=== PATIENT | male | born 1950 | race Caucasian/White ===

== ENCOUNTER 2017-09-12 06:27 | Emergency (ER) | payer MEDICARE ==
[~2017-09-12] VITALS: Ht 185.4 cm; Wt 104.3 kg
[~2017-09-12 06:27] MED LIST: IBUP800; INSULANPEN SQ; Percocet 5-3251 EACH PO; Prednisone20 MG PO; Robaxin500 MG PO
[2017-09-12 07:47] LABS: BASOPHILS ABSOLUTE AUTO 0.04 K/mm3 (0.00-0.23); BASOPHILS PERCENT AUTO 0 % (0-2); EOSINOPHILS ABSOLUTE AUTO 0.06 K/mm3 (0.00-0.68); EOSINOPHILS PERCENT AUTO 0 % (0-6); Hematocrit 36.1 % (37.0-53.0); Hemoglobin 12.1 g/dL (13.5-17.5); IMMATURE GRAN ABSOLUTE AUTO 0.13 K/mm3 (0.00-0.10); IMMATURE GRAN PERCENT AUTO 1 % (0-1); LYMPHOCYTES ABSOLUTE AUTO 0.83 K/mm3 (0.84-5.20); LYMPHOCYTES PERCENT AUTO 6 % (21-46); MONOCYTES ABSOLUTE AUTO 0.86 K/mm3 (0.16-1.47); MONOCYTES PERCENT AUTO 6 % (4-13); Mean Corpuscular HGB 30.3 pg (26.0-34.0); Mean Corpuscular HGB Conc 33.5 g/dL (31.5-36.5); Mean Corpuscular Volume 91 fL (80-100); Mean Platelet Volume 8.6 fL (9.1-12.4); NEUTROPHILS ABSOLUTE AUTO 11.78 K/mm3 (1.96-9.15); NEUTROPHILS PERCENT AUTO 86 % (41-73); Platelet Count 172 K/mm3 (150-400); RDW Coefficient Variation 12.2 % (11.7-14.2); RDW Standard Deviation 40.9 fL (35.1-46.3); Red Blood Cell Count 3.99 M/mm3 (4.30-5.90)
[2017-09-12 07:59] LABS: Anion Gap 7 mmol/L (6-16); Blood Urea Nitrogen 26 mg/dL (8-24); Bun/Creatinine Ratio 28.8 (12.0-20.0); CO2, Blood 25 mmol/L (21-32); Calcium, Blood 8.5 mg/dL (8.5-10.1); Chloride, Blood 99 mmol/L (98-108); Glomerular Filtration Rate >60 (60-); Glucose, Blood 242 mg/dL (70-99); Potassium, Blood 3.7 mmol/L (3.5-5.5); Sodium, Blood 131 mmol/L (136-145)
[2017-09-12] MEDS ORDERED: Ultram50 MG PO (09:25)
[2017-09-12] MEDS ORDERED: Bactrim Ds Tab1 EACH PO (09:25)
[2017-09-12] MEDS ORDERED: Keflex500 MG PO (09:25)
== END 2017-09-12 09:48 | disposition home or self-care (01) ==
LOC: ER 06:27
PROVIDERS: Emergency Medicine
DX: L03.317 Cellulitis of buttock (principal); L02.31 Cutaneous abscess of buttock; E11.9 Type 2 diabetes mellitus without complications; Z79.4 Long term (current) use of insulin
CPT/HCPCS: 36415; 74177; 80048; 85025; 96374; 99284; J0690; Q9967

== ENCOUNTER 2017-09-15 04:55 | Emergency (ER) | payer MEDICARE ==
[~2017-09-15] VITALS: Ht 185.4 cm; Wt 90.7 kg
[~2017-09-15 04:55] MED LIST changes: +Bactrim Ds Tab1 EACH PO; +Keflex500 MG PO; +Ultram50 MG PO
[2017-09-15 05:25] LABS: Calcium, Ionized (POC) 1.14 mmol/L (1.10-1.46); Chloride (POC) 96 mmol/L (98-108); Creatinine (POC) 0.9 mg/dL (0.8-1.3); Glucose (ISTAT POC) 338 mg/dL (70-99); Hemoglobin (POC) 12.9 g/dL (13.5-17.5); Potassium (POC) 3.9 mmol/L (3.5-5.5); Sodium (POC) 131 mmol/L (135-148); Total CO2 (POC) 22 mmol/L (21-32)
[2017-09-15 05:31] LABS: BASOPHILS ABSOLUTE AUTO 0.06 K/mm3 (0.00-0.23); BASOPHILS PERCENT AUTO 1 % (0-2); EOSINOPHILS PERCENT AUTO 2 % (0-6); Hematocrit 35.9 % (37.0-53.0); Hemoglobin 12.3 g/dL (13.5-17.5); IMMATURE GRAN PERCENT AUTO 1 % (0-1); LYMPHOCYTES ABSOLUTE AUTO 1.64 K/mm3 (0.84-5.20); LYMPHOCYTES PERCENT AUTO 13 % (21-46); MONOCYTES ABSOLUTE AUTO 0.87 K/mm3 (0.16-1.47); MONOCYTES PERCENT AUTO 7 % (4-13); Mean Corpuscular HGB 30.5 pg (26.0-34.0); Mean Corpuscular HGB Conc 34.3 g/dL (31.5-36.5); Mean Corpuscular Volume 89 fL (80-100); Mean Platelet Volume 8.4 fL (9.1-12.4); NEUTROPHILS ABSOLUTE AUTO 10.04 K/mm3 (1.96-9.15); NEUTROPHILS PERCENT AUTO 78 % (41-73); Platelet Count 258 K/mm3 (150-400); RDW Coefficient Variation 12.3 % (11.7-14.2); RDW Standard Deviation 40.2 fL (35.1-46.3); Red Blood Cell Count 4.03 M/mm3 (4.30-5.90); White Blood Cell Count 12.91 K/mm3 (4.00-11.30)
[2017-09-15 05:55] LABS: Alanine Aminotransfer (ALT/SGP 16 U/L (12-78); Albumin, Blood 2.7 g/dL (3.4-5.0); Albumin/Globulin Ratio 0.6 (0.8-1.8); Alk Phos 99 U/L (50-136); Anion Gap 9 mmol/L (6-16); Aspartate Aminotrans (AST/SGOT 13 U/L (12-37); Bilirubin, Total 0.3 mg/dL (0.1-1.0); Blood Urea Nitrogen 13 mg/dL (8-24); Bun/Creatinine Ratio 14.1 (12.0-20.0); CO2, Blood 23 mmol/L (21-32); Calcium, Blood 8.4 mg/dL (8.5-10.1); Chloride, Blood 99 mmol/L (98-108); Creatinine, Blood 0.92 mg/dL (0.60-1.20); Globulin, Blood 4.6 g/dL (2.2-4.0); Glomerular Filtration Rate >60 (60-); Glucose, Blood 325 mg/dL (70-99); Potassium, Blood 3.8 mmol/L (3.5-5.5); Sodium, Blood 131 mmol/L (136-145); Total Protein, Blood 7.3 g/dL (6.4-8.2)
== END 2017-09-15 11:40 | disposition short-term general hospital (02) ==
LOC: ER 04:55
PROVIDERS: Emergency Medicine
DX: N49.3 Fournier gangrene (principal); E11.9 Type 2 diabetes mellitus without complications; Z79.4 Long term (current) use of insulin; Z79.2 Long term (current) use of antibiotics
CPT/HCPCS: 36415; 72193; 80047; 80053; 83605; 85014; 85025; 87040; 96365; 96367; 96368; 96375; 96376; 99285; J1170; J1956; J2543; J3010; J3370; J7030; J7050; Q9967

== ENCOUNTER 2020-10-21 20:20 | Inpatient (IN) | payer BC, MEDICARE ==
[~2020-10-21] VITALS: Ht 185.4 cm; Wt 114.2 kg
[2020-10-21] MEDS ORDERED: BASAGLAR K100 UNIT/8 SC (20:52)
[2020-10-21 21:01] LABS: BASOPHILS ABSOLUTE AUTO 0.04 K/mm3 (0.00-0.23); BASOPHILS PERCENT AUTO 0 % (0-2); Hematocrit 39.9 % (37.0-53.0); Hemoglobin 13.3 g/dL (13.5-17.5); LYMPHOCYTES PERCENT AUTO 3 % (21-46); MONOCYTES ABSOLUTE AUTO 0.53 K/mm3 (0.16-1.47); MONOCYTES PERCENT AUTO 3 % (4-13); Mean Corpuscular HGB 30.9 pg (26.0-34.0); Mean Corpuscular HGB Conc 33.3 g/dL (31.5-36.5); Mean Corpuscular Volume 93 fL (80-100); Mean Platelet Volume 8.8 fL (9.1-12.4); Platelet Count 208 K/mm3 (150-400); RDW Coefficient Variation 13.5 % (11.7-14.2); White Blood Cell Count 17.14 K/mm3 (4.00-11.30)
[2020-10-21 21:02] LABS: EOSINOPHILS PERCENT AUTO 0 % (0-6); IMMATURE GRAN ABSOLUTE AUTO 0.23 K/mm3 (0.00-0.10); IMMATURE GRAN PERCENT AUTO 1 % (0-1); NEUTROPHILS ABSOLUTE AUTO 15.84 K/mm3 (1.96-9.15); NEUTROPHILS PERCENT AUTO 93 % (41-73)
[2020-10-21 21:22] LABS: BAND PERCENT MAN 14 % (0-8); BASOPHILS PERCENT MAN 0 % (0-2); EOSINOPHILS PERCENT MAN 0 % (0-6); LYMPHOCYTES ABSOLUTE MAN 0.17 K/mm3 (0.84-5.20); LYMPHOCYTES PERCENT MAN 1 % (21-46); METAMYELOCYTE ABSOLUTE MAN 0.17 K/mm3 (0.00-0.00); METAMYELOCYTE PERCENT MAN 1 % (0-0); MONOCYTES ABSOLUTE MAN 0.68 K/mm3 (0.16-1.47); MONOCYTES PERCENT MAN 4 % (4-13); NEUTROPHILS ABSOLUTE MAN 16.11 K/mm3 (1.96-9.15); SEG NEUTROPHILS PERCENT MAN 80 % (41-73); TOTAL CELLS COUNTED 100
[2020-10-21 21:28] LABS: Albumin, Blood 3.6 g/dL (3.4-5.0); Bilirubin, Total 0.8 mg/dL (0.1-1.0); Calcium, Blood 8.9 mg/dL (8.5-10.1); Creatinine, Blood 1.29 mg/dL (0.60-1.20); Globulin, Blood 3.7 g/dL (2.2-4.0); Potassium, Blood 3.9 mmol/L (3.5-5.5); Total Protein, Blood 7.3 g/dL (6.4-8.2)
[2020-10-21 21:29] LABS: Troponin I 0.538 ng/mL (0.000-0.040)
[2020-10-21 22:34] LABS: Creatine Kinase MB 4.6 ng/mL (0.0-3.6); Creatine Kinase MB Index 0.1 (0.0-4.0)
[2020-10-21 23:55] LABS: Source, Urine Catheter
[2020-10-22 00:03] LABS: Appearance, Urine Clear (Clear); Blood, Urine 5+ (Neg); Color, Urine Amber (P-Yellow); Glucose Qualitative, Urine Neg (Neg); Ketones, Urine 3+ (Neg); Leukocyte Esterase, Urine 1+ (Neg); Nitrite, Urine Pos (Neg); Protein, Urine 4+ (Neg); Specific Gravity, Urine 1.015 (1.003-1.022); Urobilinogen, Urine 2+ (Normal)
[2020-10-22 00:04] LABS: Bilirubin, Urine 1+ (Neg)
[2020-10-22 00:06] LABS: Bacteria Mod /hpf; Mucus Light (0-Heavy); Red Blood Cells, Urine 0-2 /hpf (0-2); Squamous Epithelial Cells Few /hpf (Few)
[2020-10-22 04:35] LABS: BASOPHILS ABSOLUTE AUTO 0.03 K/mm3 (0.00-0.23); BASOPHILS PERCENT AUTO 0 % (0-2); Hematocrit 37.4 % (37.0-53.0); Hemoglobin 12.5 g/dL (13.5-17.5); LYMPHOCYTES ABSOLUTE AUTO 0.67 K/mm3 (0.84-5.20); LYMPHOCYTES PERCENT AUTO 6 % (21-46); MONOCYTES ABSOLUTE AUTO 0.28 K/mm3 (0.16-1.47); MONOCYTES PERCENT AUTO 2 % (4-13); Mean Corpuscular HGB 31.6 pg (26.0-34.0); Mean Corpuscular HGB Conc 33.4 g/dL (31.5-36.5); Mean Corpuscular Volume 95 fL (80-100); Mean Platelet Volume 8.5 fL (9.1-12.4); Platelet Count 166 K/mm3 (150-400); RDW Coefficient Variation 13.5 % (11.7-14.2); RDW Standard Deviation 47.2 fL (35.1-46.3); Red Blood Cell Count 3.95 M/mm3 (4.30-5.90); White Blood Cell Count 12.22 K/mm3 (4.00-11.30)
[2020-10-22 04:36] LABS: EOSINOPHILS PERCENT AUTO 0 % (0-6); IMMATURE GRAN ABSOLUTE AUTO 0.06 K/mm3 (0.00-0.10); IMMATURE GRAN PERCENT AUTO 1 % (0-1); NEUTROPHILS ABSOLUTE AUTO 11.18 K/mm3 (1.96-9.15); NEUTROPHILS PERCENT AUTO 92 % (41-73)
[2020-10-22 04:55] LABS: Albumin, Blood 3.1 g/dL (3.4-5.0); Albumin/Globulin Ratio 0.9 (0.8-1.8); Bilirubin, Total 0.6 mg/dL (0.1-1.0); Bun/Creatinine Ratio 22.6 (12.0-20.0); Creatinine, Blood 1.33 mg/dL (0.60-1.20); Globulin, Blood 3.4 g/dL (2.2-4.0); Potassium, Blood 3.5 mmol/L (3.5-5.5); Total Protein, Blood 6.5 g/dL (6.4-8.2)
--- NOTE | 2020-10-22 05:05 | NUR ---
SHIFT SUMMARY RECIEVED PATIENT FROM ED AT APPROXIMETLY 0145. PATIENT FOUND TO BE A PLEASANT GENTLEMAN WHO IS A&OX3, FOLLOWING COMMANDS, AND SHOOK. POOR HISTORIAN AND POOR AWARENESS OF TIME. NO PAIN OR DISTRESS NOTED UPON ASSESSMENT. VSS. NSR ON THE MONITOR. ON RA. FLUIDS AND IV ABX INFUSING PER ORDER. NPO FOR TESTS IN AM. VOIDING WELL PER URINAL. NO ACUTE CONCERNS AT THIS TIME. WILL CONTINUE TO MONITOR.
[2020-10-22 05:36] LABS: Creatine Kinase MB 9.8 ng/mL (0.0-3.6); Creatine Kinase MB Index 0.1 (0.0-4.0)
[2020-10-22 13:42] LABS: Troponin I 0.605 ng/mL (0.000-0.040)
[2020-10-22 14:06] LABS: Creatine Kinase MB 3.9 ng/mL (0.0-3.6)
--- NOTE | 2020-10-22 17:10 | NUR ---
Shift Summary Pt has been a/o x 3 with moments of forgetfulness. He is weak and needs assistance with turning with brief changes. He c/o pain to his LLE and it is warm and red. The Dr was notified and an ultrasound was completed and DVT was ruled out. CT was completed and reviewed by Dr Vieira who was consulted for ortho. Per Dr Vieira the infection remains superficial and between him and Dr Mark the IV ABO were changed from Cleocin to Vanco. The pt spiked a fever this afternoon and Dr Mark ordered tylenol and another set of blood cultures both of which were completed. The Daughter arrived this afternoon and is now at the bedside and has been updated on the current plan. Daughter is the pt's person of contact and is also a RN in [place]. She is a good advocate for her dad. Dr Vieira will see the pt again in the morning. Pt diet was advanced but he has no appetite and took a few sips of water and a sugar free prtein drink. Pt has been resting most of the day but calls when needed. The bed alarm is on for pt safety.
[2020-10-23 04:21] LABS: BASOPHILS ABSOLUTE AUTO 0.03 K/mm3 (0.00-0.23); BASOPHILS PERCENT AUTO 0 % (0-2); EOSINOPHILS ABSOLUTE AUTO 0.01 K/mm3 (0.00-0.68); EOSINOPHILS PERCENT AUTO 0 % (0-6); Hematocrit 32.5 % (37.0-53.0); Hemoglobin 11.1 g/dL (13.5-17.5); IMMATURE GRAN ABSOLUTE AUTO 0.06 K/mm3 (0.00-0.10); IMMATURE GRAN PERCENT AUTO 1 % (0-1); LYMPHOCYTES ABSOLUTE AUTO 0.76 K/mm3 (0.84-5.20); LYMPHOCYTES PERCENT AUTO 7 % (21-46); MONOCYTES ABSOLUTE AUTO 0.36 K/mm3 (0.16-1.47); MONOCYTES PERCENT AUTO 4 % (4-13); Mean Corpuscular HGB 31.4 pg (26.0-34.0); Mean Corpuscular HGB Conc 34.2 g/dL (31.5-36.5); Mean Corpuscular Volume 92 fL (80-100); Mean Platelet Volume 9.1 fL (9.1-12.4); NEUTROPHILS ABSOLUTE AUTO 9.11 K/mm3 (1.96-9.15); NEUTROPHILS PERCENT AUTO 88 % (41-73); Platelet Count 150 K/mm3 (150-400); RDW Coefficient Variation 13.4 % (11.7-14.2); RDW Standard Deviation 45.5 fL (35.1-46.3); Red Blood Cell Count 3.54 M/mm3 (4.30-5.90); White Blood Cell Count 10.33 K/mm3 (4.00-11.30)
[2020-10-23 05:07] LABS: Alanine Aminotransfer (ALT/SGP 81 U/L (12-78); Albumin, Blood 2.4 g/dL (3.4-5.0); Albumin/Globulin Ratio 0.7 (0.8-1.8); Alk Phos 51 U/L (50-136); Anion Gap 6 mmol/L (6-16); Aspartate Aminotrans (AST/SGOT 208 U/L (12-37); Bilirubin, Total 0.4 mg/dL (0.1-1.0); Blood Urea Nitrogen 32 mg/dL (8-24); Bun/Creatinine Ratio 27.4 (12.0-20.0); CO2, Blood 23 mmol/L (21-32); Calcium, Blood 7.2 mg/dL (8.5-10.1); Chloride, Blood 108 mmol/L (98-108); Creatine Kinase MB 2.2 ng/mL (0.0-3.6); Creatinine, Blood 1.17 mg/dL (0.60-1.20); Globulin, Blood 3.3 g/dL (2.2-4.0); Glomerular Filtration Rate >60 (60-); Glucose, Blood 115 mg/dL (70-99); Potassium, Blood 3.6 mmol/L (3.5-5.5); Sodium, Blood 137 mmol/L (136-145); Total Protein, Blood 5.7 g/dL (6.4-8.2)
[2020-10-23 05:09] LABS: C-REACTIVE PROTEIN, EXT RANGE >19.000 mg/dL (0.000-0.300); CPK Creatine Kinase 7777 U/L (39-308)
--- NOTE | 2020-10-23 05:30 | NUR ---
SHIFT SUMMARY PATIENT IS A PLEASANT GENTLEMAN FOUND TO BE A&OX4, FOLLOWS COMMANDS, AND SHOOK, ALTHOUGH LEFT LEG WEAKER. FEBRILE WITH A TMAX OF 101 WITH GOOD RELIEF WITH TYLENOL. VSS. ON RA. PAIN, SWELLING, AND REDNESS TO LLE WITH GOOD PAIN RELIEF USING TORADOL. ELEVATED ON PILLOW TO REDUCE SWELLING. TOLERATING CARDIAC DIET. NO CP NOTED. VOIDING WELL PER URINAL. IV ABX AND FLUIDS INFUSING PER ORDER. PATIENT STATES FEELING MUCH BETTER THIS AM. NO ACUTE CONCERNS AT THIS TIME. WILL CONTINUE TO MONITOR.
--- NOTE | 2020-10-23 10:01 | NUR ---
PT ALERT AND ORIENTED X4. ON ROOM AIR SATING ABOVE 94%. TELE SHOWING SINUS WITH PVC'S AND HR IN THE 80'S. DENIES CHEST PAIN. VITAL SIGNS STABLE WITH A TEMP OF 99.0. DENIES NEED FOR TYLENOL AT THIS TIME. BED ALARM ON FOR SAFETY. IV FLUIDS INFUSING. LEFT LOWER LEG REDNESS AND 2+ EDEMA NOTED. PAIN DESCRIBED IN LEFT LOWER LEG BELOW THE KNEE AND PAINFUL UPON MOVING OR PRESSURE. NO PAIN AT REST. USING URINAL, DARK ANGEL URINE. CALL LIGHT IN REACH. EDUCATED ON SAFETY. WILL CONTINUE TO MONITOR.
--- NOTE | 2020-10-23 18:08 | NUR ---
SHIFT SUMMARY: PT REMAINS ALERT AND ORIENTED X4. ON ROOM AIR SATING ABOVE 94%. TELE SHOWING SINUS WITH PVC'S AND HR 60-70'S. DENIES CHEST PAIN. COMPLAINS OF LEFT LOWER LEG PAIN. LEFT LEG BELOW THE KNEE REDNESS AND SWELLING NOTED, UNCHANGING THROUGHOUT THE SHIFT. MEDICATED PER EMAR WITH TORDAL WITH GOOD RELIEF. LEGS ELEVATED IN BED. USING URINAL. CALLING APPROPRIATLY. VITAL SIGNS STABLE. IV FLUIDS AND ANTIBIOTICS INFUSED. WILL CONTINUE TO MONITOR AND REPORT OFF.
--- NOTE | 2020-10-23 18:54 | NUR ---
Transfer from PCU to [place] [id number] Received report from [facility]-RN. Patient arrived to unit via w/c with NS infusing. Personal belongings came with patient including cell phone and real estate closing coordinator. A/Ox3, self transferred over to bed. SBA at this time. WCTM and report to oncoming RN.
[2020-10-24 02:16] LABS: Vancomycin, Trough 12.6 ug/mL (5.0-10.0)
--- NOTE | 2020-10-24 04:41 | NUR ---
SHIFT SUMMARY AOX4. VSS. TELE NSR c PVC @73. REPORTS 11/30 PAIN L ELBOW & LLE, MEDICATED 2X c TYLENOL & 1X c TORADOL PER ORDERS, ABLE TO REST COMFORTABLY. L ELBOW RED, WARM TO TOUCH, SWOLLEN, TENDER TO PALPATION. LLE RED, +2 EDEMA, HOT, TENDER TO TOUCH. RECIEVING IV ANTIBIOTICS FOR CELLULITIS. HS CBG @257, NO COVERAGE ORDERED, PT STATES HE NORMALLY TAKES INSULIN @[facility]-WILL PASS THIS INFO TO DAY NURSE. CALL LIGHT IN REACH & PT ABLE TO MAKE NEEDS KNOWN. WILL MONITOR.
[2020-10-24 08:44] LABS: Albumin, Blood 2.4 g/dL (3.4-5.0); Anion Gap 4 mmol/L (6-16); Blood Urea Nitrogen 19 mg/dL (8-24); Bun/Creatinine Ratio 20.8 (12.0-20.0); CO2, Blood 22 mmol/L (21-32); Calcium, Blood 7.2 mg/dL (8.5-10.1); Chloride, Blood 111 mmol/L (98-108); Creatinine, Blood 0.92 mg/dL (0.60-1.20); Glomerular Filtration Rate >60 (60-); Glucose, Blood 199 mg/dL (70-99); Phosphorus, Blood 1.5 mg/dL (2.5-4.9); Potassium, Blood 3.9 mmol/L (3.5-5.5); Sodium, Blood 137 mmol/L (136-145)
[2020-10-24 08:46] LABS: CPK Creatine Kinase 5437 U/L (39-308)
--- NOTE | 2020-10-24 16:13 | NUR ---
Shift Summary A/Ox4, pleasant and cooperative. Have not seen patient get up out of bed today, LLE remains elevated, hot to touch, erythema, but "not as tender when touched" compared to time of admission. Patient concern of unmanaged blood glucose in the hospital as he is not on his home regimen despite discussing with Dr. Lopez this morning. This RN explained/reiterated that per Dr. Lopez, patient will be given current diabetes regimen until discharge when patient can resume home insulin. Also explained that hospital has a strict ADA diet for diabetes (different from his regular diet at home) therefore will need different insulin coverages while hospitalized. Patient agreeable. Dr. Lopez and Dr. Sherman aware of L elbow/arm redness. MRSA swab collected and sent to lab. Medicated for 6/10 GARSIA x 2, nausea x 1 per EMAR. NS @ 125 infusing. Temp 99.6, otherwise all VSS stable. Patient requesting for rootbeer, but understood this is not part of an ADA diet. No other acute changes. Tele: SR PITTS @ 37.
[2020-10-25 05:38] LABS: Albumin, Blood 2.2 g/dL (3.4-5.0); Anion Gap 8 mmol/L (6-16); Blood Urea Nitrogen 14 mg/dL (8-24); Bun/Creatinine Ratio 14.9 (12.0-20.0); CO2, Blood 20 mmol/L (21-32); Calcium, Blood 7.5 mg/dL (8.5-10.1); Chloride, Blood 108 mmol/L (98-108); Creatinine, Blood 0.94 mg/dL (0.60-1.20); Glomerular Filtration Rate >60 (60-); Glucose, Blood 210 mg/dL (70-99); Phosphorus, Blood 1.9 mg/dL (2.5-4.9); Sodium, Blood 136 mmol/L (136-145)
--- NOTE | 2020-10-25 06:01 | NUR ---
SHIFT SUMMARY AOX4. VSS. TELE NSR c PVC @80. REPORTED 8/10 PAIN L ELBOW, MEDICATED 1X c ULTRAM & PT STATED VERY LITTLE RELIEF, PLACED ICE & ELEVATED. PT HAS NO COMPLAINTS OF PAIN IN ELBOW THIS AM. LLE & L ELBOW ARE RED, WARM TO TOUCH, HAVE EDEMA & TENDER TO TOUCH, PT RECIEVING IV ANTIBIOTICS. LLE ELEVATED ON PILLOW. MEDICATED 1X FOR GARSIA c TYLENOL. CALL LIGHT IN REACH & PT ABLE TO MAKE NEEDS KNOWN. WILL MONITOR.
--- NOTE | 2020-10-25 12:17 | NUR ---
PT STILL C/O PAIN AFTER MEDICATED. WANTS TO STAY UNTIL FEELING BETTER. CALLED DR Hernandez WILL HOLD D/C.
--- NOTE | 2020-10-25 17:12 | NUR ---
PT PLEASANT TODAY. TALKED SOME OF HIS WAR DAYS. NEIGHBOR BROUGHT IN DOG TO VISIT TODAY. THIS DEFINATELY HELPED HIS SPIRIT. PAIN WAS HIGHER THIS DAY. DID GIVE 2 TRAMADOL THIS AFT AND IS HELPING. HAS FEVER OF 100.2. GAVE TYLENOL AND WILL RECHECK. PT STATES WHEN WALKED TO BATHROOM, HIS LEG PAIN INCREASED GREATLY. FEELS NOT READY TO GO HOME. DR NOTIFIED. NO OTHER CONCERNS NOTED. BED INLOW POSITION, CALL LITE IN REACH, CALLS APPROP
--- NOTE | 2020-10-25 18:34 | NUR ---
dr crespo in to see pt. we viewed leg. believes no major changes today. did pat outline on leg
--- NOTE | 2020-10-26 05:04 | NUR ---
SHIFT SUMMARY S/P RHABDOMYOLYSIS/KENRICK/LLE CELLULITIS/LUE ELBOW PAIN, A/O, VSS, TOLERATING PO, REDNESS STILL PRESENT TO LLE AND HAS NOT EXCEEDED JEFFERSON DISTALLY, IMPROVED PROXIMALLY, PAIN WELL MANAGED PER EMAR, NO ACUTE EVENTS THIS SHIFT. CALL LIGHT IN REACH, WILL CONTINUE TO MONITOR AND REPORT TO ONCOMING DAY RN.
[2020-10-26 06:10] LABS: BASOPHILS ABSOLUTE AUTO 0.06 K/mm3 (0.00-0.23); BASOPHILS PERCENT AUTO 1 % (0-2); EOSINOPHILS ABSOLUTE AUTO 0.25 K/mm3 (0.00-0.68); EOSINOPHILS PERCENT AUTO 2 % (0-6); Hemoglobin 11.9 g/dL (13.5-17.5); IMMATURE GRAN ABSOLUTE AUTO 0.14 K/mm3 (0.00-0.10); IMMATURE GRAN PERCENT AUTO 1 % (0-1); LYMPHOCYTES ABSOLUTE AUTO 1.22 K/mm3 (0.84-5.20); LYMPHOCYTES PERCENT AUTO 11 % (21-46); MONOCYTES PERCENT AUTO 7 % (4-13); Mean Corpuscular HGB 30.8 pg (26.0-34.0); Mean Corpuscular HGB Conc 33.1 g/dL (31.5-36.5); Mean Corpuscular Volume 93 fL (80-100); Mean Platelet Volume 9.3 fL (9.1-12.4); NEUTROPHILS ABSOLUTE AUTO 8.35 K/mm3 (1.96-9.15); NEUTROPHILS PERCENT AUTO 78 % (41-73); Platelet Count 202 K/mm3 (150-400); RDW Coefficient Variation 13.2 % (11.7-14.2); RDW Standard Deviation 45.4 fL (35.1-46.3); Red Blood Cell Count 3.86 M/mm3 (4.30-5.90); White Blood Cell Count 10.72 K/mm3 (4.00-11.30)
[2020-10-26 06:32] LABS: Albumin, Blood 2.4 g/dL (3.4-5.0); Anion Gap 5 mmol/L (6-16); Blood Urea Nitrogen 14 mg/dL (8-24); Bun/Creatinine Ratio 14.4 (12.0-20.0); CO2, Blood 23 mmol/L (21-32); Calcium, Blood 8.3 mg/dL (8.5-10.1); Chloride, Blood 107 mmol/L (98-108); Creatinine, Blood 0.97 mg/dL (0.60-1.20); Glomerular Filtration Rate >60 (60-); Glucose, Blood 166 mg/dL (70-99); Phosphorus, Blood 2.3 mg/dL (2.5-4.9); Potassium, Blood 3.9 mmol/L (3.5-5.5); Sodium, Blood 135 mmol/L (136-145)
[2020-10-26 06:55] LABS: CPK Creatine Kinase 1222 U/L (39-308)
--- NOTE | 2020-10-26 08:00 | NUR ---
PT PLEASATNT COOP A/O X3. STATES LEG SOME BETTER TODAY. PAIN DOWN TO 5. STILL SWOLLEN AND WARM, BUT HAS RECEEDED FROM SHARPIE ROMELIA OF YEST. SWELLING DOWN FROM YEST. FINE WRINKLES NOTED. DR CHINCHILLA IN TO SEE PT. AGREES SHOULD GET ANOTHER DAY OF ABX IV. PT STATES TO ME THAT HE CANNOT COME BACK TO ATC FOR OUTPT ABX EVEN IF NEEDS. H/R REG, NO MURMER NOTED. PER TELE NSR AT 80'S. LUNGS CLEAR REWP EASY, UNLABORED. ON R.A/ BT HYPO LAST BM YEST. VOIDS URINAL. SBA TO BATHTROOM. DID HAVE PT STAND AND PERFORM INPLACE WALKING. DISCOMFORT REPORTED, BUT NOT SPECIFICALLY PAINFUL. BED IN LOW POSITION, CALL LITE IN REACH, CALLS APPROP
[2020-10-26 14:29] LABS: Vancomycin, Trough 11.3 ug/mL (5.0-10.0)
--- NOTE | 2020-10-26 18:07 | NUR ---
PT PLEASNT TODAY. DR SOLIZ IN TO SEE PT TODAY. PLACED DARIO WRAP ON L LEG. PT HAS BEEN UP TO WALK SOME TODAY. PAIN BETTER MANAGED TODAY. NEIGHBOR BROUGHT IN HIS DOG AGAIN TODAY. PT STATES SOME IMPROVEMENT. LEG COLOR HAS IMPROVED SOME, REDNESS HAS RECEEDED SOME ALSO. BED IN LOW POSITION, CALL LITE IN REACH, CALLS APROP
[2020-10-27 04:48] LABS: BASOPHILS ABSOLUTE AUTO 0.05 K/mm3 (0.00-0.23); BASOPHILS PERCENT AUTO 1 % (0-2); EOSINOPHILS ABSOLUTE AUTO 0.34 K/mm3 (0.00-0.68); EOSINOPHILS PERCENT AUTO 4 % (0-6); Hematocrit 33.3 % (37.0-53.0); Hemoglobin 11.4 g/dL (13.5-17.5); IMMATURE GRAN PERCENT AUTO 2 % (0-1); LYMPHOCYTES ABSOLUTE AUTO 1.25 K/mm3 (0.84-5.20); LYMPHOCYTES PERCENT AUTO 14 % (21-46); MONOCYTES ABSOLUTE AUTO 0.53 K/mm3 (0.16-1.47); MONOCYTES PERCENT AUTO 6 % (4-13); Mean Corpuscular HGB 31.3 pg (26.0-34.0); Mean Corpuscular HGB Conc 34.2 g/dL (31.5-36.5); Mean Corpuscular Volume 92 fL (80-100); Mean Platelet Volume 8.9 fL (9.1-12.4); NEUTROPHILS ABSOLUTE AUTO 6.51 K/mm3 (1.96-9.15); NEUTROPHILS PERCENT AUTO 73 % (41-73); Platelet Count 227 K/mm3 (150-400); RDW Coefficient Variation 12.9 % (11.7-14.2); RDW Standard Deviation 43.1 fL (35.1-46.3); Red Blood Cell Count 3.64 M/mm3 (4.30-5.90); White Blood Cell Count 8.88 K/mm3 (4.00-11.30)
[2020-10-27 05:07] LABS: Albumin, Blood 2.2 g/dL (3.4-5.0); Anion Gap 7 mmol/L (6-16); Blood Urea Nitrogen 16 mg/dL (8-24); Bun/Creatinine Ratio 17.9 (12.0-20.0); CO2, Blood 23 mmol/L (21-32); CPK Creatine Kinase 504 U/L (39-308); Calcium, Blood 8.5 mg/dL (8.5-10.1); Chloride, Blood 103 mmol/L (98-108); Creatinine, Blood 0.89 mg/dL (0.60-1.20); Glomerular Filtration Rate >60 (60-); Glucose, Blood 197 mg/dL (70-99); Potassium, Blood 3.8 mmol/L (3.5-5.5); Sodium, Blood 133 mmol/L (136-145)
--- NOTE | 2020-10-27 06:06 | NUR ---
SHIFT SUMMARY LYING IN SEMI FOWLERS WITH EYES OPEN WHILE DRINKING COFFEE AND WATCHING THE NEWS. HAS RESTED OFF AND ON THIS SHIFT. NO SIGNIFICANT CHANGES THIS SHIFT. PIV REMAINS PATENT, FLUSHING WITH EASE. DRESSING TO LLE REMAIN C/D/I. MEDICATED FOR GARSIA PER EMAR. DENIES PAIN, DISCOMFORT, OR FURTHER NEEDS AT THIS TIME. SAFETY MEASURES IN PLACE. WILL CONTINUE TO MONITOR AND ADDRESS NEEDS THEY ARISE. WILL GIVE HAND OFF TO ONCOMING SHIFT USING SBAR DURING BEDSIDE REPORT.
--- NOTE | 2020-10-27 08:00 | NUR ---
PT PLEASANT A/O TALKATIVE. PT STATES FOOD DR IN TO SEE HIM THIS AM. DID DR SOLIZ YEST ISABEL. PT WANTS TO GET ON E MORE DAY IV ABX TO GET ON TRACK. H/R REG, NO MURMER NOTED. PER TELE NSR WITH OCC PAC AND PVCS, RET 67. LUNGS CLEAR TODAY. RESP EASY, UNLABORED. BT HYPO. STATES LAST BM 2 DAYS. REFUSED BOWEL CARE. VOIDS URINAL AND AMBULATES TO BATHROOM INDEPENDANTLY. DR SOLIZ WRAPPED LEFT LEG LSAT ISABEL. PT JESUS ADEQUATELY. STATES PAIN SOME HIGHER. MED FOR PAIN THIS AM. BED IN LOW POSITION, CALL LITE IN REACH, CALLS APPROP
--- NOTE | 2020-10-27 11:07 | NUR ---
TO ROOM OKAYED REMOVE TELE.
--- NOTE | 2020-10-27 18:24 | NUR ---
PT HAS BEEN QUITE PLEASANT AND TALKATIVE. STATES IS PLEASED GOT TO STAY FOR EXTRA TIME FOR IV ABX. DR SOLIZ STATES IMPROVING. PT PLEASED ABOUT ;THIS. COMFORTABLE FOR DISCHARGE IN AM TOMORROW. NO NEW CONCERNS NOTED TODAY. BED IN LOW POISITION, CALLLITE IN REAHC, CALLS APROP
--- NOTE | 2020-10-27 23:36 | NUR ---
evening headache persisting after tylenol and tramadol. ice packs applied for comfort
--- NOTE | 2020-10-28 04:18 | NUR ---
PATIENT IS ALERT AND ORIENTED X4, VERY MINIMAL COMPLAINTS OF DISCOMFORT IN LEFT LEG WHICH WERE SOLVED WITH ELEVATION EARLY IN EVENING. RODOLFO'S ONLY COMPLAINT WAS A HEADACHE WHICH WAS INITIALLY TREATED WITH TYLENOL, THEN ULTRAM (2) AND FINALLY ICE TO HIS FOREHEAD. SHORTLY AFTER 2300, HE WAS FINALLY ABLE TO GET TO SLEEP. VSS PATIENT LOOKING FORWARD TO DISCHARGE TODAY.
[2020-10-28] MEDS ORDERED: Acetaminophen325 M1 PO (10:24)
[2020-10-28] MEDS ORDERED: BANATROL PLUS1 EAC1 PO (10:25)
[2020-10-28] MEDS ORDERED: TRAM50 PO (10:25)
[2020-10-28] MEDS ORDERED: SULFAMETHOXAZO1 EAC1 PO (10:26)
[2020-10-28] MEDS ORDERED: CEPH500 PO (10:26)
--- NOTE | 2020-10-28 10:52 | NUR ---
DISCHARGED PT DISCHARGED TO HOME; PT GIVEN PACKET AND EDUCATED ABOUT HIS PRESCRIPTION AND TRAMADOL SCRIPT GIVEN TO PT. ID DC'D. CALLED DTR TO DISCUSSED ABOUT THE UPCOMING APPOINTMENT FOR DR OSORIO; GAVE DR OFFICE NUMBER TO MAKE AN APPOINTMENT. DTR AWARE ABOUT THE CURRENT MEDICATIONS. CHANGED DRESSING BY DR OSORIO AT BEDSIDE PRIOR DISCHARGE TODAY. DENIES ANY DISTRESS OR SOB.
== END 2020-10-28 10:50 | disposition home or self-care (01) | DRG 872 ==
LOC: ER 20:20 → ERHOLD 23:28 → MEDS 23:28 → PCU 23:28 → MEDS 10-23 18:58
PROVIDERS: Emergency Medicine; Internal Medicine; Pharmacist; Physician Assistant; ADMIT Internal Medicine
DX: A41.9 Sepsis, unspecified organism (principal); M62.82 Rhabdomyolysis; L03.116 Cellulitis of left lower limb; N17.9 Acute kidney failure, unspecified; E86.0 Dehydration; R77.8 Other specified abnormalities of plasma proteins; I50.9 Heart failure, unspecified; E11.9 Type 2 diabetes mellitus without complications; Z86.718 Personal history of other venous thrombosis and embolism; Z79.4 Long term (current) use of insulin
CPT/HCPCS: 36415; 71045; 73590; 73700; 73701; 76770; 80053; 80069; 80202; 81001; 82550; 82553; 82947; 83605; 83880; 84484; 85025; 85651; 86140; 87040; 87086; 93005; 93010; 93306; 93970; 96361; 96374; 96375; 97110; 97162; 97165; 97530; 97535; 99285-25; A9270; J0696; J1650; J1885; J1940; J2405; J3010; J3370; J7030; J7050; Q9967

== ENCOUNTER 2020-10-30 15:25 | Emergency (ER) | payer BC, MEDICARE ==
[~2020-10-30] VITALS: Ht 185.4 cm; Wt 104.3 kg
[~2020-10-30 15:25] MED LIST changes: +Acetaminophen325 M1 PO; +BANATROL PLUS1 EAC1 PO; +BASAGLAR K100 UNIT/8 SC; +CEPH500 PO; +SULFAMETHOXAZO1 EAC1 PO; +TRAM50 PO
== END 2020-10-30 17:31 | disposition left against medical advice (07) ==
LOC: ER 15:25
DX: M79.89 Other specified soft tissue disorders (principal); Z53.21 Procedure and treatment not carried out due to patient leaving prior to being seen by health care provider
CPT/HCPCS: 99282

== ENCOUNTER 2020-11-14 16:30 | Inpatient (IN) | payer BC, MEDICARE ==
[~2020-11-14] VITALS: Ht 185.4 cm; Wt 108.0 kg
[2020-11-14 17:28] LABS: BASOPHILS ABSOLUTE AUTO 0.05 K/mm3 (0.00-0.23); BASOPHILS PERCENT AUTO 1 % (0-2); EOSINOPHILS ABSOLUTE AUTO 0.21 K/mm3 (0.00-0.68); EOSINOPHILS PERCENT AUTO 3 % (0-6); Hemoglobin 10.8 g/dL (13.5-17.5); IMMATURE GRAN ABSOLUTE AUTO 0.05 K/mm3 (0.00-0.10); IMMATURE GRAN PERCENT AUTO 1 % (0-1); LYMPHOCYTES PERCENT AUTO 24 % (21-46); MONOCYTES ABSOLUTE AUTO 0.48 K/mm3 (0.16-1.47); MONOCYTES PERCENT AUTO 8 % (4-13); Mean Corpuscular HGB 30.9 pg (26.0-34.0); Mean Corpuscular HGB Conc 32.7 g/dL (31.5-36.5); Mean Corpuscular Volume 95 fL (80-100); Mean Platelet Volume 8.4 fL (9.1-12.4); NEUTROPHILS ABSOLUTE AUTO 3.95 K/mm3 (1.96-9.15); NEUTROPHILS PERCENT AUTO 63 % (41-73); Platelet Count 232 K/mm3 (150-400); RDW Standard Deviation 44.7 fL (35.1-46.3); Red Blood Cell Count 3.49 M/mm3 (4.30-5.90); White Blood Cell Count 6.24 K/mm3 (4.00-11.30)
[2020-11-14 17:42] LABS: Troponin I 0.191 ng/mL (0.000-0.040)
[2020-11-14 17:43] LABS: Albumin, Blood 3.3 g/dL (3.4-5.0); Albumin/Globulin Ratio 0.7 (0.8-1.8); Bilirubin, Total 0.3 mg/dL (0.1-1.0); Bun/Creatinine Ratio 17.2 (12.0-20.0); Calcium, Blood 8.8 mg/dL (8.5-10.1); Creatinine, Blood 2.44 mg/dL (0.60-1.20); Globulin, Blood 4.6 g/dL (2.2-4.0); Total Protein, Blood 7.9 g/dL (6.4-8.2)
[2020-11-14 19:00] LABS: International Normalized Ratio 1.06; Prothrombin Time Results 11.4 Sec (9.7-11.5)
[2020-11-15 01:05] LABS: BASOPHILS ABSOLUTE AUTO 0.02 K/mm3 (0.00-0.23); BASOPHILS PERCENT AUTO 0 % (0-2); EOSINOPHILS ABSOLUTE AUTO 0.08 K/mm3 (0.00-0.68); EOSINOPHILS PERCENT AUTO 2 % (0-6); Hematocrit 32.1 % (37.0-53.0); Hemoglobin 10.7 g/dL (13.5-17.5); IMMATURE GRAN ABSOLUTE AUTO 0.03 K/mm3 (0.00-0.10); IMMATURE GRAN PERCENT AUTO 1 % (0-1); LYMPHOCYTES ABSOLUTE AUTO 0.89 K/mm3 (0.84-5.20); LYMPHOCYTES PERCENT AUTO 19 % (21-46); MONOCYTES ABSOLUTE AUTO 0.38 K/mm3 (0.16-1.47); MONOCYTES PERCENT AUTO 8 % (4-13); Mean Corpuscular HGB 31.3 pg (26.0-34.0); Mean Corpuscular HGB Conc 33.3 g/dL (31.5-36.5); Mean Corpuscular Volume 94 fL (80-100); Mean Platelet Volume 8.6 fL (9.1-12.4); NEUTROPHILS ABSOLUTE AUTO 3.32 K/mm3 (1.96-9.15); NEUTROPHILS PERCENT AUTO 70 % (41-73); Platelet Count 198 K/mm3 (150-400); RDW Coefficient Variation 13.1 % (11.7-14.2); RDW Standard Deviation 44.6 fL (35.1-46.3); Red Blood Cell Count 3.42 M/mm3 (4.30-5.90); White Blood Cell Count 4.72 K/mm3 (4.00-11.30)
[2020-11-15 01:24] LABS: Albumin, Blood 3.1 g/dL (3.4-5.0); Albumin/Globulin Ratio 0.7 (0.8-1.8); Bilirubin, Total 1.3 mg/dL (0.1-1.0); Bun/Creatinine Ratio 21.3 (12.0-20.0); Calcium, Blood 8.7 mg/dL (8.5-10.1); Creatinine, Blood 1.78 mg/dL (0.60-1.20); Globulin, Blood 4.4 g/dL (2.2-4.0); Potassium, Blood 4.7 mmol/L (3.5-5.5); Total Protein, Blood 7.5 g/dL (6.4-8.2)
--- NOTE | 2020-11-15 05:04 | NUR ---
SHIFT SUMMARY PATIENT ADMITTED FROM ER AT APPROXIMETLY 2130. FOUND TO BE A PLEASANT GENTLEMAN WHO IS A&OX4, FOLLOWING COMMANDS, AND SHOOK. CP AT TOLERABLE LEVEL OF 2/10. NSR ON THE MONITOR. VSS. ON RA. SLIGHTLY NAUSEA STILL. GI COCKTAIL GIVEN. REMAINS NPO IN CASE OF INTERVENTION IN AM. FLUIDS RUNNING PER ORDER. USING URINAL TO VOID WITHOUT ISSUE. UP SBA IN ROOM PRN. NO ACUTE CONCERNS AT THIS TIME. WILL CONTINUE TO MONITOR UNTIL REPORT GIVEN TO ALYSSA KAY.
--- NOTE | 2020-11-15 10:06 | NUR ---
Echocardiogram completed.
[2020-11-15] MEDS ORDERED: DOXY100 PO (13:30)
[2020-11-15] MEDS ORDERED: PANT40 PO (13:32)
[2020-11-15] MEDS ORDERED: TRAM50 PO (13:33)
--- NOTE | 2020-11-15 14:06 | NUR ---
DISCHARGE SUMMARY RODOLFO LEFT WITH FRIEND, PIVS REMOVED, DISCHARGE EDUCATION DONE, MEDS FAXED TO PHARMACY. PHYSICAL COPY OF TRAMADOL GIVEN AND SCRIPT OF LAB ORDERS. (COPY IN CHART OF BOTH). PT AWARE TO GET LABS DONE FRIDAY, AND PT VERY VERY EDUCATED ON NOT TAKING TYLENOL OR IBUPROFEN OR MOTRIN, ETC. PT ALREADY HAS F/U SCHEDULED WITH PCP, DR SMYTH OFFICE WILL CALL HIM TO SCHEDULE. PT DECLINED STRONGLY TO LEAVE BY WC, LEFT AMBULATING WELL IN HALLWAY TO GO DOWN TO HIS RIDE'S CAR
--- NOTE | 2020-11-15 14:25 | NUR ---
Spiritual care visit conducted. Patient immediately tells me about his friends today, about how they met as [employer] in [place] and how they remained friends ever since. He talks about how he spent the last two months of his life with him. Patient also talks about his beloved dog of 14 yrs named Liam who takes good care of the patient. He tells me that he is not Moravian but one of his best friends is a Manager [employer] and that he grew up Moravian. He does have a deep belief in God. Patient is tearful at times talking about his friend who and when talking about his PTSD. 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 I reinforce helpful attitudes and practices, normalize his experience and provide therapeutic listening and prayer. Patient responds well and shows signs of restored soo and increased peace. I will continue to remain available to patient and family.
[2020-11-15 14:55] LABS: CHOL/HDL RATIO 4.3; Cholesterol 142 mg/dL (50-200); HDL Cholesterol 33 mg/dL (>39); LDL/HDL RATIO 2.7; Low Density Lipoprotein Chol 90 mg/dL (0-110); Triglycerides 94 mg/dL (30-160); Very Low Density Lipoprot Chol 18 mg/dL (6-32)
== END 2020-11-15 15:00 | disposition home or self-care (01) | DRG 392 ==
LOC: ER 16:30 → PCU 20:03
PROVIDERS: Emergency Medicine; Internal Medicine Cardiovascular Disease; ADMIT Internal Medicine
DX: K29.70 Gastritis, unspecified, without bleeding (principal); N17.9 Acute kidney failure, unspecified; E11.9 Type 2 diabetes mellitus without complications; E66.9 Obesity, unspecified; I50.9 Heart failure, unspecified; D64.9 Anemia, unspecified; T39.315A Adverse effect of propionic acid derivatives, initial encounter; I11.0 Hypertensive heart disease with heart failure; I25.10 Atherosclerotic heart disease of native coronary artery without angina pectoris; Z60.2 Problems related to living alone; Z98.890 Other specified postprocedural states; Z79.4 Long term (current) use of insulin
CPT/HCPCS: 36415; 71045; 80053; 80061; 82947; 83036; 84484; 85025; 85610; 85730; 93005; 93010; 93308; 93321; 96374; 99285-25; A9270; C9113; J0696; J1644; J1815; J2270; J7030

== ENCOUNTER → 2020-12-28 | Outpatient (CLI) | payer BC, MEDICARE ==
[~2020-12-28] MED LIST changes: +ASPI81CH PO; +ATOR40TA PO; +CLOP75 PO; +DOXY100 PO; +GLIP2.5ER PO; +PANT40 PO; +PANTOPRAZOLE SO40 M2 PO
== END | disposition home or self-care (01) ==
LOC: LAB 19:02 → LAB SHORT 19:02
DX: R79.9 Abnormal finding of blood chemistry, unspecified (principal); D51.9 Vitamin B12 deficiency anemia, unspecified
CPT/HCPCS: 82607

== ENCOUNTER 2021-01-03 07:57 | Observation (INO) | payer BC, MEDICARE ==
[~2021-01-03] VITALS: Ht 185.4 cm; Wt 109.9 kg
[~2021-01-03 07:57] MED LIST changes: -ASPI81CH PO; -ATOR40TA PO; -CLOP75 PO; -GLIP2.5ER PO; -PANTOPRAZOLE SO40 M2 PO
[2021-01-03] MEDS ORDERED: GLIP2.5ER PO (08:29)
[2021-01-03 08:39] LABS: BASOPHILS ABSOLUTE AUTO 0.06 K/mm3 (0.00-0.23); BASOPHILS PERCENT AUTO 1 % (0-2); EOSINOPHILS ABSOLUTE AUTO 0.14 K/mm3 (0.00-0.68); EOSINOPHILS PERCENT AUTO 2 % (0-6); Hematocrit 37.1 % (37.0-53.0); Hemoglobin 12.5 g/dL (13.5-17.5); IMMATURE GRAN ABSOLUTE AUTO 0.03 K/mm3 (0.00-0.10); IMMATURE GRAN PERCENT AUTO 0 % (0-1); LYMPHOCYTES ABSOLUTE AUTO 1.22 K/mm3 (0.84-5.20); LYMPHOCYTES PERCENT AUTO 18 % (21-46); MONOCYTES ABSOLUTE AUTO 0.38 K/mm3 (0.16-1.47); MONOCYTES PERCENT AUTO 6 % (4-13); Mean Corpuscular HGB 30.7 pg (26.0-34.0); Mean Corpuscular HGB Conc 33.7 g/dL (31.5-36.5); Mean Corpuscular Volume 91 fL (80-100); Mean Platelet Volume 8.9 fL (9.1-12.4); NEUTROPHILS ABSOLUTE AUTO 4.97 K/mm3 (1.96-9.15); NEUTROPHILS PERCENT AUTO 73 % (41-73); Platelet Count 235 K/mm3 (150-400); RDW Coefficient Variation 12.7 % (11.7-14.2); RDW Standard Deviation 42.2 fL (35.1-46.3); Red Blood Cell Count 4.07 M/mm3 (4.30-5.90)
[2021-01-03 09:01] LABS: Alanine Aminotransfer (ALT/SGP 20 U/L (12-78); Albumin, Blood 3.4 g/dL (3.4-5.0); Albumin/Globulin Ratio 0.8 (0.8-1.8); Alk Phos 73 U/L (50-136); Anion Gap 8 mmol/L (6-16); Aspartate Aminotrans (AST/SGOT 11 U/L (12-37); Bilirubin, Total 0.3 mg/dL (0.1-1.0); Blood Urea Nitrogen 27 mg/dL (8-24); Bun/Creatinine Ratio 25.2 (12.0-20.0); CO2, Blood 25 mmol/L (21-32); Calcium, Blood 9.1 mg/dL (8.5-10.1); Chloride, Blood 101 mmol/L (98-108); Creatinine, Blood 1.07 mg/dL (0.60-1.20); Globulin, Blood 4.2 g/dL (2.2-4.0); Glomerular Filtration Rate >60 (60-); Glucose, Blood 365 mg/dL (70-99); Potassium, Blood 4.1 mmol/L (3.5-5.5); Sodium, Blood 134 mmol/L (136-145); Total Protein, Blood 7.6 g/dL (6.4-8.2); Troponin I 0.153 ng/mL (0.000-0.040)
[2021-01-03] MEDS ORDERED: PANTOPRAZOLE SO40 M2 PO (11:52)
--- NOTE | 2021-01-03 15:05 | NUR ---
Echocardiogram completed.
--- NOTE | 2021-01-03 17:30 | NUR ---
Shift Summary Received report from [facility]-RN. Patient arrived approximately 1320 via gurney with personal belongings bag and pants on. Self transferred from gurney to bed. States symptoms of N/T to fingers have resolved completely. N/T to L lips remain, but very subtle. A/Ox4, pleasant and cooperative. Independent in room, urinal use at bedside. Calls appropriately for needs. ECHO completed in room. Maintenance fluid complete. Switchboard Operator Assistant and leg strength equal, no drifting noted, smile is symmetric. Tele: SR 60's. Patient reported feeling shaky and requested snacks at approx 1500. Snack given and patient symptoms improved. No acute changes, WCTM.
--- NOTE | 2021-01-03 19:19 | NUR ---
BEDSIDE REPORT GIVEN BY ELIZA CUELLO. PT RESTING IN BED. RESP E/U ON RA. TELE IN PLACE. SL. A/O. NO SPEECH DEFICIT NOTED. PT HOPING TO BE D/C IN AM. NO NEEDS AT THIS TIME. WILL PROVIDE CARE T/O SHIFT. CALL LT IN REACH.
--- NOTE | 2021-01-03 19:55 | NUR ---
PT DENIES CP, SOB. VERY SMALL AMOUNT OF TINGLING ON TIP OF RIGHT INDEX FINGER. TINGLING RESOLVED IN L HAND. SMALL AMOUNT OF TINGLING ON LEFT LIP. SPEECH CLEAR, NO DEFICITS. [place] DRIVER BILAT EQUALLY STRONG. NO NOTED ARM DRIFT. ABLE TO LIFT LE'S OFF BED. NO N/T IN BLE'S. DENIES NAUSEA. CALL LT IN REACH.
--- NOTE | 2021-01-03 19:57 | NUR ---
DENIES DIFFICULTY CHEWING OR SWALLOWING. A/O.
--- NOTE | 2021-01-03 21:32 | NUR ---
DENIES CHEST PAIN AND NO NEW NEURO SYMPTOMS. ENCOURAGED PT TO USE CALL LT TO REPORT ANY NEURO CHANGES. PT STATES HE WILL. CALL LT IN REACH.
--- NOTE | 2021-01-03 23:19 | NUR ---
NOTIFIED DR BAY OF BUMPED TROPONIN OF 0.156, PREVIOUS TROPONIN 0.148. PT DENIES CP AND SOB. NO NEW ORDERS RECEIVED.
--- NOTE | 2021-01-04 02:30 | NUR ---
PT AWAKE. NO COMPLAINTS. DENIES CP. VOIDING WELL USING URINAL AT BEDSIDE. CALL LT IN REACH.
--- NOTE | 2021-01-04 05:33 | NUR ---
SHIFT SUMMARY: A/O. NO COMPLAINTS OF CP OR SOB. SLIGHT NUMBNESS IN TIP OF R INDEX FINGER, VISION ALMOST WITHIN NORMAL LIMITS IN LEFT EYE PER PT. NO NEW CHANGES. PT USED URINAL AT BEDSIDE DURING SHIFT. RESTED WELL. WILL CONTINUE TO PROVIDE CARE UNTIL SHIFT REPORT.
--- NOTE | 2021-01-04 05:33 | NUR ---
PT STATES HE'S DOING FINE. NO NEW CHANGES. NO CP. NO NEEDS AT THIS TIME. CALL LT IN REACH.
[2021-01-04] MEDS ORDERED: ATOR40TA PO (11:41)
[2021-01-04] MEDS ORDERED: CLOP75 PO (11:41)
[2021-01-04] MEDS ORDERED: ASPI81CH PO (11:41)
== END 2021-01-04 12:03 | disposition home health service (06) ==
LOC: ER 07:57 → MEDS 07:58
PROVIDERS: Emergency Medicine; ADMIT Internal Medicine
DX: I63.9 Cerebral infarction, unspecified (principal); G83.24 Monoplegia of upper limb affecting left nondominant side; H53.8 Other visual disturbances; E11.9 Type 2 diabetes mellitus without complications; I50.9 Heart failure, unspecified; R77.8 Other specified abnormalities of plasma proteins; I65.21 Occlusion and stenosis of right carotid artery; E66.9 Obesity, unspecified; Z68.33 Body mass index [BMI] 33.0-33.9, adult; Z66 Do not resuscitate; Z88.8 Allergy status to other drugs, medicaments and biological substances; Z79.4 Long term (current) use of insulin
CPT/HCPCS: 36415; 70450; 70496; 70498; 80053; 82947; 84484; 85025; 92610; 93005; 93010; 93308; 97110; 97116; 97161; 97530; 99285-25; A9270; G0378; J7030; Q9967

== ENCOUNTER → 2021-05-23 | Outpatient (CLI) | payer BC, MEDICARE ==
[~2021-05-23] MED LIST changes: +ASPI81CH PO; +ATOR40TA PO; +CLOP75 PO; +GLIP2.5ER PO; +PANTOPRAZOLE SO40 M2 PO
[2021-05-23 20:17] LABS: Alanine Aminotransfer (ALT/SGP 36 U/L (12-78); Albumin, Blood 3.3 g/dL (3.4-5.0); Albumin/Globulin Ratio 0.8 (0.8-1.8); Alk Phos 74 U/L (50-136); Anion Gap 6 mmol/L (6-16); Aspartate Aminotrans (AST/SGOT 21 U/L (12-37); Bilirubin, Total 0.4 mg/dL (0.1-1.0); Blood Urea Nitrogen 29 mg/dL (8-24); Bun/Creatinine Ratio 28.7 (12.0-20.0); CO2, Blood 24 mmol/L (21-32); Calcium, Blood 9.3 mg/dL (8.5-10.1); Chloride, Blood 107 mmol/L (98-108); Creatinine, Blood 1.01 mg/dL (0.60-1.20); Globulin, Blood 4.1 g/dL (2.2-4.0); Glomerular Filtration Rate >60 (60-); Glucose, Blood 221 mg/dL (70-99); Potassium, Blood 4.3 mmol/L (3.5-5.5); Sodium, Blood 137 mmol/L (136-145); Total Protein, Blood 7.4 g/dL (6.4-8.2)
== END | disposition home or self-care (01) ==
LOC: LAB 19:09 → LAB SHORT 19:09
PROVIDERS: Physician Assistant
DX: R60.0 Localized edema (principal)
CPT/HCPCS: 80053; 83880

== ENCOUNTER 2021-06-04 18:01 | Emergency (ER) | payer BC, MEDICARE ==
[~2021-06-04] VITALS: Ht 185.4 cm; Wt 106.6 kg
[2021-06-04] MEDS ORDERED: XARELTO15 M1 PO (20:59)
[2021-06-04] MEDS ORDERED: XARELTO20 MG PO (20:59)
== END 2021-06-04 21:10 | disposition home or self-care (01) ==
LOC: ER 18:01
DX: I82.452 Acute embolism and thrombosis of left peroneal vein (principal); I50.9 Heart failure, unspecified; E11.9 Type 2 diabetes mellitus without complications; Z79.899 Other long term (current) drug therapy
CPT/HCPCS: 99283; A9270